=== PATIENT | male | born 1950 | race Native Hawaiian/Other Pacific Islander ===

== ENCOUNTER 2019-04-22 10:52 | Outpatient (CLI) | payer OTHER ==
[2019-04-22 11:30] LABS: PLATELET COUNT 279 K/uL (142-355)
[2019-04-22 11:39] LABS: POTASSIUM 3.8 mmol/L (3.6-5.2)
== END 2019-04-22 22:31 | disposition home or self-care (01) ==
LOC: LABW 10:52
PROVIDERS: Internal Medicine
DX: N18.5 Chronic kidney disease, stage 5 (principal)
CPT/HCPCS: 36415; 80053; 81000; 82330; 82570; 83735; 84100; 84155; 85027

== ENCOUNTER 2019-04-24 10:06 | Outpatient (CLI) | payer OTHER ==
[2019-04-24 10:39] LABS: PLATELET COUNT 259 K/uL (142-355)
[2019-04-24 10:49] LABS: POTASSIUM 3.9 mmol/L (3.6-5.2)
== END 2019-04-24 23:33 | disposition home or self-care (01) ==
LOC: LABW 10:06
PROVIDERS: Internal Medicine
DX: N18.5 Chronic kidney disease, stage 5 (principal)
CPT/HCPCS: 36415; 80053; 81000; 82330; 82570; 83735; 84100; 84155; 85027

== ENCOUNTER 2019-04-29 07:41 | Outpatient (CLI) | payer OTHER ==
[2019-04-29 07:54] LABS: PLATELET COUNT 250 K/uL (142-355)
[2019-04-29 08:05] LABS: POTASSIUM 4.4 mmol/L (3.6-5.2)
== END 2019-04-29 23:40 | disposition home or self-care (01) ==
LOC: LABW 07:41
PROVIDERS: Internal Medicine
DX: N18.5 Chronic kidney disease, stage 5 (principal)
CPT/HCPCS: 36415; 80053; 82330; 83735; 84100; 85027

== ENCOUNTER 2019-04-30 10:52 | Outpatient (CLI) | payer OTHER | END 2019-04-30 22:17 | disposition home or self-care (01) | LOC: LAB 10:52 | DX: N18.5 Chronic kidney disease, stage 5 (principal) | CPT/HCPCS: 81000; 82570; 84155 ==

== ENCOUNTER 2022-04-24 17:33 | Emergency (ER) | payer OTHER ==
[~2022-04-24] VITALS: Ht 177.8 cm; Wt 117.5 kg
[2022-04-24 17:33] VITALS: BP 146/96; TEMP 97.4
[2022-04-24 17:43] LABS: PLATELET COUNT 215 K/uL (142-355)
[2022-04-24 17:54] LABS: POTASSIUM 4.4 mmol/L (3.6-5.2)
[2022-04-24] MEDS ORDERED: TYLENOL325 MG PO (22:29)
[2022-04-24] MEDS ORDERED: APIX1TAB PO (22:30)
[2022-04-24] MEDS ORDERED: LIPITOR80 MG PO (22:31)
[2022-04-24] MEDS ORDERED: ROCALTROL0.25 MCG PO (22:32)
[2022-04-24] MEDS ORDERED: CARV25TA PO (22:33)
[2022-04-24] MEDS ORDERED: DEXT50IN8 IV (22:34)
[2022-04-24] MEDS ORDERED: DOCU100C10 PO (22:35)
[2022-04-24] MEDS ORDERED: LEXAPRO20 MG PO (22:36)
[2022-04-24] MEDS ORDERED: EZET10TA13 PO (22:37)
[2022-04-24] MEDS ORDERED: FERROUS GLUC324 M1 PO (22:38)
[2022-04-24] MEDS ORDERED: FINA5TAB2 PO (22:39)
[2022-04-24] MEDS ORDERED: FURO40TA93 PO (22:40)
[2022-04-24] MEDS ORDERED: GABA300C2 PO (22:41)
[2022-04-24] MEDS ORDERED: GLUCAGON1 M1 IM (22:42)
[2022-04-24] MEDS ORDERED: GLUCOS PO (22:44)
[2022-04-24] MEDS ORDERED: HEMMOREX-HC25 MG PR (22:46)
[2022-04-24] MEDS ORDERED: HYDRALAZINE25 MG PO (22:47)
[2022-04-24] MEDS ORDERED: LANTUS100 UNIT/M SC (22:48)
[2022-04-24] MEDS ORDERED: ISOS30TA17 PO (22:49)
[2022-04-24] MEDS ORDERED: LOPERAMIDE2 MG PO (22:51)
[2022-04-24] MEDS ORDERED: NITR0.4S2 SL (22:53)
[2022-04-24] MEDS ORDERED: OZEMPIC4 MG/3 ML SC (22:56)
[2022-04-24] MEDS ORDERED: TRAZ50TA36 PO (22:57)
== END 2022-04-24 18:50 | disposition still patient (30) ==
LOC: ED 17:33
PROVIDERS: Emergency Medicine Emergency Medical Services
DX: F91.8 Other conduct disorders (principal); Z11.52 Encounter for screening for COVID-19; Z79.899 Other long term (current) drug therapy
CPT/HCPCS: 80053; 85027; 87635; 99283; U0003

== ENCOUNTER 2023-10-29 19:08 | Emergency (ER) | payer OTHER ==
[~2023-10-29] VITALS: Ht 177.8 cm; Wt 113.4 kg
[2023-10-29 19:08] VITALS: TEMP 98.4
[~2023-10-29 19:08] MED LIST: ACET-206 PO; APIX1TAB PO; ATOR20TA2 PO; BLOOMIS59 PO; BLOOMIS59 SC; CALCITRIOL0.25 MCG PO; CARV25TA PO; COREG 25 MG PO; DEXT50IN8 IV; DOCU100C10 PO; ELIQUIS5 MG PO; ESCI10TA PO; EZET10TA13 PO; FERROUS GLUC324 M1 PO; FERROUS SULF325 MG PO; FINA5TAB2 PO; FURO40TA93 PO; GABA300C2 PO; GABA400C2 PO; GLUCAGON1 M1 IM; GLUCOS PO; HEMMOREX-HC25 MG PR; HYDR25TA57 PO; HYDRALAZINE25 MG PO; INSU300I SC; INSUINJ20 SC; ISOS30TA17 PO; LANTUS100 UNIT/M SC; LEXAPRO20 MG PO; LIPITOR80 MG PO; LOPE2CAP17 PO; LOPERAMIDE2 MG PO; MAGNSUS68 PO; NITR0.4S SL; NITR0.4S2 SL; OLANZAPINE5 MG PO; OZEMPIC4 MG/3 ML SC; SIME80CH32 PO; TRAZ50TA36 PO; TYLENOL325 MG PO
[2023-10-29 19:43] LABS: PLATELET COUNT 173 K/uL (142-355)
[2023-10-29 19:51] LABS: POTASSIUM 4.5 mmol/L (3.6-5.2)
[2023-10-29 21:42] VITALS: BP 168/60
[2023-10-30] MEDS ORDERED: ALBUTEROL0.083 % INH (06:30)
[2023-10-30] MEDS ORDERED: TYLENOL325 MG PO (06:30)
[2023-10-30] MEDS ORDERED: MYLANT3 PO (06:31)
[2023-10-30] MEDS ORDERED: AMLODIPINE BESYLATE PO (06:32)
[2023-10-30] MEDS ORDERED: LIPITOR40 MG PO (06:35)
[2023-10-30] MEDS ORDERED: DIPH2.5T76 PO (06:36)
[2023-10-30] MEDS ORDERED: CALAMINE TOP (06:39)
[2023-10-30] MEDS ORDERED: FOLIC ACID PO (06:43)
[2023-10-30] MEDS ORDERED: HEMORRHOID RE (06:46)
[2023-10-30] MEDS ORDERED: HYDROCODONE BIT1 TA1 PO (06:47)
[2023-10-30] MEDS ORDERED: ISOSORBIDE MONONITRA PO (06:50)
[2023-10-30] MEDS ORDERED: LORA0.5T17 PO (06:51)
[2023-10-30] MEDS ORDERED: ONDANSETRON ODT PO (06:56)
[2023-10-30] MEDS ORDERED: DULO30CA PO (06:57)
== END 2023-10-29 21:42 | disposition other institution (70) ==
LOC: ED 19:08
PROVIDERS: Family Medicine
DX: Z00.8 Encounter for other general examination (principal); R45.1 Restlessness and agitation; F29 Unspecified psychosis not due to a substance or known physiological condition
CPT/HCPCS: 36415; 80053; 85027; 87635; 93005; 99283; U0003